=== PATIENT | female | born 1980 | race Caucasian/White ===

== ENCOUNTER 2018-01-22 12:45 | Emergency (ER) | payer MEDICAID ==
[~2018-01-22] VITALS: Ht 152.4 cm; Wt 46.7 kg
[2018-01-22 12:59] VITALS: Ht 152.4 cm; Wt 46.7 kg
[2018-01-22 15:45] VITALS: BP 107/68
== END 2018-01-22 15:45 | disposition home or self-care (01) ==
LOC: ED 12:45
DX: G44.209 Tension-type headache, unspecified, not intractable (principal); R11.0 Nausea; R42 Dizziness and giddiness
CPT/HCPCS: J2765; J7030

== ENCOUNTER 2019-03-18 08:19 | Emergency (ER) | payer MEDICAID ==
[~2019-03-18] VITALS: Ht 165.1 cm; Wt 47.2 kg
[2019-03-18 08:26] VITALS: Ht 165.1 cm; Wt 47.2 kg
[2019-03-18 10:23] VITALS: BP 110/79
== END 2019-03-18 10:23 | disposition home or self-care (01) ==
LOC: ED 08:19
DX: G43.909 Migraine, unspecified, not intractable, without status migrainosus (principal)
CPT/HCPCS: J0780